=== PATIENT | female | born 1980 | race Caucasian/White ===

== ENCOUNTER → 2016-11-29 | Outpatient (CLI) | payer BC ==
[~2016-11-29] MED LIST: DARVOCET-N 1001 EACH PO; KEFLEX 500MG.500 MG PO
--- NOTE | 2016-11-30 12:17 | RADIOLOGY REPORT PS360 ---
DIG MAMM-DX UNI A/VW-RT W/CAD RIGHT BREAST ULTRASOUND WITH AXILLA COMPARISON: 10/29/2016 mammogram INDICATION: Follow-up abnormal mammogram ORDERING PHYSICIAN: Cristopher Weston MD PATIENT AGE: 35 years TECHNIQUE: Spot compression views are performed along with exaggerated CC view and cleavage view FINDINGS: On the MLO view there is an oblong opacity deep in the infra aspect of the right breast measuring approximately 1.4 x 0.6 cm. This is 10 cm deep to the nipple. A spot compression view which when back as far as 11 cm fail to demonstrate this area. Probably benign. This was not visualized on the exaggerated CC or cleavage view. Right breast ultrasound: No breast lesions are evident. Small nodes present in the axilla. IMPRESSION: No convincing evidence of malignancy. Probably benign BI-RADS CATEGORY: 3_Probably Benign-Short Term F/U RECOMMENDED FOLLOWUP: 6 month mammographic follow-up on the right (A letter has been sent to the patient regarding results of the study.)
== END ==
LOC: RAD 13:27
DX: R92.8 Other abnormal and inconclusive findings on diagnostic imaging of breast (principal)
CPT/HCPCS: G0206-RT